=== PATIENT | male | born 1965 | race Asian ===

== ENCOUNTER 2020-10-20 23:40 | Emergency (ER) | payer OTHER ==
[~2020-10-20] VITALS: Ht 160 cm; Wt 56.8 kg
[2020-10-20] MEDS ORDERED: ATOR10TA84 PO (23:52)
[2020-10-20] MEDS ORDERED: AMLO-258 PO (23:52)
[2020-10-21 01:30] VITALS: BP 133/81
== END 2020-10-21 02:13 | disposition home or self-care (01) ==
LOC: EMS 23:44
DX: J18.0 Bronchopneumonia, unspecified organism (principal); Z20.822 Contact with and (suspected) exposure to COVID-19
CPT/HCPCS: 71045; 99284; U0003

== ENCOUNTER 2020-10-22 16:23 | Inpatient (IN) | payer OTHER ==
[~2020-10-22] VITALS: Ht 162.6 cm; Wt 55.0 kg
[~2020-10-22 16:23] MED LIST: AMLO-258 PO; ATOR10TA84 PO
[2020-10-22 19:12] LABS: BASOPHILS % (AUTO) 0.3 % (0.0-2.0); EOSINOPHILS % (AUTO) 3.9 % (1.0-6.0); HEMATOCRIT 41.6 % (41-53); LYMPHOCYTES # (AUTO) 1.9 K/uL (1.0-4.8); LYMPHOCYTES % (AUTO) 17.6 % (22.0-44.0); MEAN CORPUSCULAR HEMOGLOBIN 30.2 pg (26.0-34.0); MEAN CORPUSCULAR HGB CONC 33.7 G/dL (31.0-37.0); MEAN CORPUSCULAR VOLUME 90 fL (80-100); MONOCYTES # (AUTO) 0.6 K/uL (0.1-1.0); MONOCYTES % (AUTO) 5.3 % (2.0-9.0); NEUTROPHILS # (AUTO) 7.7 K/uL (1.8-7.7); NEUTROPHILS % (AUTO) 72.9 % (40.0-70.0); PLATELET COUNT (AUTO) 233 K/uL (150-450); RED BLOOD CELL COUNT(AUTO) 4.64 MIL/uL (4.50-5.90); RED CELL DISTRIBUTION WIDTH 13.1 % (11.5-14.5)
[2020-10-22 19:14] LABS: APPEARANCE,URINE CLEAR (CLEAR); BILIRUBIN,URINE NEGATIVE (NEGATIVE); GLUCOSE, URINE (UA) 100 mg/dL (NEGATIVE); KETONES,URINE NEGATIVE (NEGATIVE); LEUKOCYTE ESTERASE ,URINE NEGATIVE (NEGATIVE); NITRATE,URINE NEGATIVE (NEGATIVE); OCCULT BLOOD,URINE NEGATIVE (NEGATIVE); PROTEIN,URINE NEGATIVE (NEGATIVE); UROBILINOGEN,URINE 0.2 mg/dL (<=1.0)
[2020-10-22] MEDS ORDERED: ONDANSETRON HCL 4 MG/2 ML VIAL IVP PRN ×2 (19:15→20:00)
[2020-10-22] MEDS ORDERED: ACETAMINOPHEN 325 MG TABLET PO PRN ×2 (19:15→20:00)
[2020-10-22] MEDS ORDERED: CefTRIAXone 1 GM/DEXTROSE 50 ML IV ONE (19:15)
[2020-10-22] MEDS ORDERED: 0.9% SODIUM CHLORIDE 10 ML SYRINGE IVP PRN (19:15)
[2020-10-22 19:21] LABS: ANION GAP 6 mmol/L (8-16); CALCIUM, TOTAL 9.4 mg/dL (8.8-10.5); CARBON DIOXIDE 31 mmol/L (22-29); CHLORIDE 104 mmol/L (98-107); CREATININE 1.14 mg/dL (0.60-1.30); GLOMERULAR FILTR. RATE CALC > 60 mL/min (>60); GLUCOSE,RANDOM 125 mg/dL (70-110); POTASSIUM 3.4 mmol/L (3.5-5.1); SODIUM SERUM 141 mmol/L (136-145); UREA NITROGEN, BLOOD 14 mg/dL (7-18)
[2020-10-22 19:21] LABS: BACTERIA,URINE None Seen /HPF (None Seen); RBC,URINE None Seen /HPF (0-2); SQUAMOUS EPITHELIAL CELL,UR None Seen /LPF (None Seen); WBC,URINE None Seen /HPF (0-5)
[2020-10-22 19:26] LABS: ALANINE AMINOTRANSFERASE 29 U/L (12-78); ALBUMIN 3.8 g/dL (3.4-5.0); ALKALINE PHOSPHATASE 82 U/L (46-116); ASPARTATE AMINOTRANSFERASE 19 U/L (15-37); BILIRUBIN,TOTAL 0.4 mg/dL (0.1-1.0); TOTAL PROTEIN, SERUM 8.8 g/dL (6.4-8.2)
[2020-10-22 19:27] LABS: PROTHROMBIN TIME 10.5 SEC (9.4-11.6)
[2020-10-22 19:36] LABS: B-TYPE NATRIURETIC PEPTIDE 33 pg/mL (0-100)
[2020-10-22 19:38] LABS: COVID AG,FIA SOURCE NASOPHARYNGEAL
[2020-10-22 19:48] LABS: D-DIMER 0.51 mg/L FEU (0.00-0.50)
[2020-10-22] MEDS ORDERED: MAGNESIUM HYDROXIDE SUSPENSION 30 ML UDCUP PO PRN (20:00)
[2020-10-22] MEDS ORDERED: HYDROCODONE/ACETAMINOPHEN 5-325 MG TABLET PO PRN (20:00)
[2020-10-22] MEDS ORDERED: BISACODYL 10 MG RECTAL RECTAL SUPPOSITORY PR PRN (20:00)
[2020-10-22] MEDS ORDERED: ZOLPIDEM TARTRATE 5 MG TABLET PO PRN (20:00)
[2020-10-22] MEDS ORDERED: MORPHINE SULFATE 2 MG/ML SYRINGE IVP PRN (20:00)
[2020-10-22] MEDS: DOCUSATE SODIUM 100 MG CAPSULE PO SCH (21:00)
[2020-10-22 21:38] VITALS: BP 127/76
[2020-10-22] MEDS ORDERED: POTASSIUM CHLORIDE 20 MEQ ER TABLET PO ONE (22:30)
[2020-10-23 04:32] VITALS: BP 105/67
[2020-10-23 07:55] VITALS: BP 123/65
[2020-10-23] MEDS: PANTOPRAZOLE SODIUM 40 MG DR TABLET PO SCH (08:13)
[2020-10-23] MEDS: DOCUSATE SODIUM 100 MG CAPSULE PO SCH ×2 (08:13→20:27)
[2020-10-23] MEDS ORDERED: *CLINICAL-LEVOFLOXACIN IVPB DOSING CLINICAL ONE (11:00)
[2020-10-23] MEDS ORDERED: LEVOFLOXACIN 500 MG/D5% WATER 100 ML IV SCH (12:00)
[2020-10-23] MEDS ORDERED: SODIUM CHLORIDE 0.9% 250 ML IV ONE (14:49)
[2020-10-23 15:36] VITALS: BP 113/72
[2020-10-23 20:15] VITALS: BP 115/67
[2020-10-23 23:55] VITALS: BP 105/61
[2020-10-24 04:01] VITALS: BP 107/67
[2020-10-24 08:00] VITALS: BP 137/79
[2020-10-24] MEDS: PANTOPRAZOLE SODIUM 40 MG DR TABLET PO SCH (09:03)
[2020-10-24] MEDS: DOCUSATE SODIUM 100 MG CAPSULE PO SCH ×2 (09:03→20:16)
[2020-10-24] MEDS ORDERED: POTASSIUM CHLORIDE 10% 40 MEQ/30 ML LIQUID UDCUP PO ONE (14:45)
[2020-10-24] MEDS: LEVOFLOXACIN 750 MG/D5% WATER 150 ML IV SCH (15:01)
[2020-10-24 15:58] VITALS: BP 126/78
[2020-10-24 19:49] VITALS: BP 115/67
[2020-10-25 04:46] VITALS: BP 100/54
[2020-10-25 05:06] LABS: HIV 1-2 SCREEN 4TH GEN W/RFLX Non Reactive (Non Reactive)
[2020-10-25 08:12] VITALS: BP 131/86
[2020-10-25] MEDS: DOCUSATE SODIUM 100 MG CAPSULE PO SCH ×2 (08:19→20:28)
[2020-10-25] MEDS: PANTOPRAZOLE SODIUM 40 MG DR TABLET PO SCH (08:19)
[2020-10-25] MEDS: LEVOFLOXACIN 750 MG/D5% WATER 150 ML IV SCH (15:39)
[2020-10-25 20:23] VITALS: BP 133/77
[2020-10-25 23:30] VITALS: BP 124/76
[2020-10-26 04:05] VITALS: BP 106/67
[2020-10-26 07:40] VITALS: BP 129/79
[2020-10-26] MEDS: DOCUSATE SODIUM 100 MG CAPSULE PO SCH ×2 (08:16→20:16)
[2020-10-26] MEDS: PANTOPRAZOLE SODIUM 40 MG DR TABLET PO SCH (08:16)
[2020-10-26 11:07] LABS: QUANTIFERON, TB GOLD PLUS Positive (Negative)
[2020-10-26 11:11] VITALS: BP 124/68
[2020-10-26] MEDS: LEVOFLOXACIN 750 MG/D5% WATER 150 ML IV SCH (14:32)
[2020-10-26 15:26] VITALS: BP 134/74
[2020-10-26 19:53] VITALS: BP 141/86
[2020-10-26 23:51] VITALS: BP 124/63
[2020-10-27 05:13] VITALS: BP 123/60
[2020-10-27 08:06] VITALS: BP 109/70
[2020-10-27] MEDS: DOCUSATE SODIUM 100 MG CAPSULE PO SCH ×2 (08:44→21:00)
[2020-10-27] MEDS: PANTOPRAZOLE SODIUM 40 MG DR TABLET PO SCH (08:45)
[2020-10-27] MEDS: LEVOFLOXACIN 750 MG/D5% WATER 150 ML IV SCH (15:13)
[2020-10-27 20:00] VITALS: BP 117/69
[2020-10-27 23:42] VITALS: BP 126/76
[2020-10-28 04:30] VITALS: BP 133/80
[2020-10-28 06:53] LABS: BASOPHILS % (AUTO) 0.3 % (0.0-2.0); EOSINOPHILS % (AUTO) 7.1 % (1.0-6.0); HEMATOCRIT 40.6 % (41-53); HEMOGLOBIN 13.6 g/dL (13.5-17.5); LYMPHOCYTES % (AUTO) 36.5 % (22.0-44.0); MEAN CORPUSCULAR HEMOGLOBIN 30.1 pg (26.0-34.0); MEAN CORPUSCULAR HGB CONC 33.6 G/dL (31.0-37.0); MEAN CORPUSCULAR VOLUME 90 fL (80-100); MONOCYTES # (AUTO) 0.5 K/uL (0.1-1.0); MONOCYTES % (AUTO) 5.4 % (2.0-9.0); NEUTROPHILS # (AUTO) 4.2 K/uL (1.8-7.7); NEUTROPHILS % (AUTO) 50.7 % (40.0-70.0); PLATELET COUNT (AUTO) 233 K/uL (150-450); RED BLOOD CELL COUNT(AUTO) 4.53 MIL/uL (4.50-5.90)
[2020-10-28 07:14] LABS: ANION GAP 5 mmol/L (8-16); CALCIUM, TOTAL 9.3 mg/dL (8.8-10.5); CARBON DIOXIDE 30 mmol/L (22-29); CHLORIDE 105 mmol/L (98-107); CREATININE 1.08 mg/dL (0.60-1.30); GLOMERULAR FILTR. RATE CALC > 60 mL/min (>60); GLUCOSE,RANDOM 89 mg/dL (70-110); POTASSIUM 4.4 mmol/L (3.5-5.1); SODIUM SERUM 140 mmol/L (136-145); UREA NITROGEN, BLOOD 21 mg/dL (7-18)
[2020-10-28 08:22] VITALS: BP 141/84
[2020-10-28] MEDS: PANTOPRAZOLE SODIUM 40 MG DR TABLET PO SCH ×2 (09:00→12:07)
[2020-10-28] MEDS: DOCUSATE SODIUM 100 MG CAPSULE PO SCH ×2 (09:00→12:06)
[2020-10-28] MEDS ORDERED: MIDAZOLAM HCL 2 MG/2 ML VIAL ONE (09:47)
[2020-10-28] MEDS ORDERED: FentaNYL CITRATE PF 100 MCG/2 ML VIAL ONE (09:47)
[2020-10-28] MEDS ORDERED: SODIUM CHLORIDE 0.9% 1,000 ML ONE (10:46)
[2020-10-28] MEDS ORDERED: BENZOCAINE 20% 50 MCG/SPRAY 57 GM TP ONE (12:00)
[2020-10-28] MEDS ORDERED: LIDOCAINE 2% 30 ML JELLY TP ONE (12:00)
[2020-10-28] MEDS ORDERED: LIDOCAINE 4% 50 ML SOLUTION TP ONE (12:00)
[2020-10-28] MEDS ORDERED: EPINEPHrine 1:1,000 [1 MG/ML] AMP IM ONE (12:00)
[2020-10-28 12:37] VITALS: BP 152/75
[2020-10-28] MEDS ORDERED: ACET-2247 PO (14:36)
[2020-10-28] MEDS: LEVOFLOXACIN 750 MG/D5% WATER 150 ML IV SCH (14:46)
[2020-10-28 16:07] VITALS: BP 128/74
[2020-10-29 13:06] LABS: LEGIONELLA PNEUMO AG URINE Negative (Negative); ORGANISM ID Not indicated.; S PNEUMO SOURCE Urine; STREP PNEUMONIAE AG URINE Negative (Negative); STREP.PNEUMO BODY FLUID CULT. Not indicated.
== END 2020-10-28 16:56 | disposition home or self-care (01) | DRG 194 ==
LOC: EMS 16:26 → 6N 19:47 → 6S 21:47
PROVIDERS: ADMIT Internal Medicine; ATTEND Internal Medicine
PROC: 0B9D8ZZ Drainage of Right Middle Lung Lobe, Via Natural or Artificial Opening Endoscopic (ICD-10-PCS; principal; 2020-10-28 11:00)
DX: J18.9 Pneumonia, unspecified organism (principal); E44.0 Moderate protein-calorie malnutrition; K92.0 Hematemesis; E87.6 Hypokalemia; E78.5 Hyperlipidemia, unspecified; I10 Essential (primary) hypertension; Z20.822 Contact with and (suspected) exposure to COVID-19; Z68.20 Body mass index [BMI] 20.0-20.9, adult
CPT/HCPCS: 31623; 31624; 71250; 83735; 84132; 85379; 86480; 86635; 87015; 87040; 87070; 87101; 87205; 87206; 87220; 87389; 87426; 87449; 87556; 87798; 87899; 88108; 88312; 93005; 99285; J0171; J0696; J1956; J2250; J3010; J7030; J7050; 36415-L1; 36415-TC; 71045-TC; U0003; Z7610